=== PATIENT | female | born 1960 | race Caucasian/White ===

== ENCOUNTER 2016-07-28 21:15 | Inpatient (IN) ==
--- NOTE | 2016-07-29 00:28 | Internal Med History&Physical ---
Date of Encounter: 07/29/16 Time of Encounter: 00:28 Assessment and Plan (1) COPD exacerbation Current visit: No Status: Acute COPD exacerbation secondary in the setting of acute bronchitis vs LLL pneumonia. CXR showed new focal, linear opacity; pneumonia vs atelectasis. Patient started on Levaquin in the ED ([place]), continue 5 day course. Continue duonebs Q12H scheduled, albuterol Q4H prn. IV steroids. Supplemental O2 as needed. Incentive spirometry. (2) Acute bronchitis Current visit: Yes Status: Acute See above. Qualifiers: Bronchitis organism: unspecified organism Qualified Code(s): J20.9 - Acute bronchitis, unspecified (3) Pneumonia Current visit: No Status: Acute LLL pneumonia vs atelectasis on CXR. See plan above. Qualifiers: Pneumonia type: due to unspecified organism Laterality: left Lung location: lower lobe of lung Qualified Code(s): J18.9 - Pneumonia, unspecified organism (4) Rib pain on left side Current visit: Yes Status: Acute Likely secondary to muscle strain in the setting of increased coughing. CXR negative for any acute fractures. Will order lidocaine patch for localized pain relief. (5) Leukocytosis Current visit: Yes Status: Acute Likely secondary to recent steroid use vs respiratory tract infection. WBC 19.5, afebrile. Continue to monitor. Qualifiers: Leukocytosis type: unspecified Qualified Code(s): D72.829 - Elevated white blood cell count, unspecified (6) Back pain Current visit: Yes Status: Chronic Chronic back pain, with radiations to lower extremities bilaterally. Patient receives spinal injections in [facility]. Continue home pain medication. Qualifiers: Back pain location: back pain in unspecified location Chronicity: chronic Back pain laterality: unspecified Qualified Code(s): M54.9 - Dorsalgia, unspecified; G89.29 - Other chronic pain (7) HTN (hypertension) Current visit: Yes Status: Chronic Continue home meds, coreg. Will likely need to verify home dosage. Current BP is 175/83. Qualifiers: Hypertension type: essential hypertension Qualified Code(s): I10 - Essential (primary) hypertension (8) HLD (hyperlipidemia) Current visit: Yes Status: Chronic Continue lovastatin, home dose unknown. Qualifiers: Hyperlipidemia type: unspecified Qualified Code(s): E78.5 - Hyperlipidemia , unspecified Internal Medicine - H&P: HPI Chief complaint: rib pain, dyspnea Admitted From: Hospital to Hospital Transfer Plans for Post Hospital Care: Home History of present illness: Ms. Bonilla is a 56 year old female that presented from [place] ED for shortness of breath. Patient states she has been dealing with symptoms for approx 6 weeks. Patient states she has had frontal sinus pressure and headache, post-nasal drainage, sorethroat, coughing with increased yellow/green sputum. She notes one episode of post-tussive emesis. Patient denies any fevers, chills , dizziness, syncope, vision changes, nausea, abdominal pain, chest pain, diarrhea, constipation, or dysuria. Patient notes L lateral rib pain x 2 days, worsened with coughing or deep inhalation. She states the pain is what brings her in, as the shortness of breath has been improving at home with the use of her boyfriend's duonebs approx every 4 hrs. Patient admits to currently smoking approx 1 ppd of cigarettes for the past 43 years. Past Med Surg Social Fam HX - Past Medical History Medical history: no medical history, myocardial infarction Psychiatric history: no psych history - Past Surgical History Surgical History: hysterectomy - Social History Smoking Status: Current every day smoker Packs per day: 1 Smokeless Tobacco Status: No Alcohol use: none Drug use: none - Family History Mother History Unknown: Yes Living Status: Still Living Hx Family Cardiac Disorders: Yes Hx Family Respiratory Disorders: No Hx Family Cancer: No Hx Family GI Disorders: Yes Hx Family Genitourinary Disorders: No Hx Family Endocrine Disorder: Yes Hx Family Musculoskeletal Disorders: No Hx Family Neuromuscular Disorders: No Hx Family Neurologic Disorders: No Hx Family Autoimmune Disorders: No Hx Family Reproductive Disorders: No Hx Family Psychosocial Disorders: No Hx Family Medical Disorders: No Father Hx Family Respiratory Disorders: Yes (emphysema ) Internal Medicine - H&P: Meds Coreg 07/27/16 [History] Diclofenac Sodium 07/27/16 [History] Estradiol 07/27/16 [History] Lovastatin 07/27/16 [History] Lyrica 07/27/16 [History] Occluvan 07/27/16 [History] Percocet 5/325 MG 07/27/16 [History] Prednisone 07/27/16 [History] Tizanidine HCl 07/27/16 [History] Ventolin Hfa 07/27/16 [History] Vitamin D 07/27/16 [History] Allergies No Known Allergies Allergy (Verified 07/27/16 11:12) All Systems PM: A 10-system review of systems was performed and is negative for pertinent findings except as documented above in the HPI. - Constitutional Constitutional: as per HPI, no fever(s) - EENT Eyes: as per HPI, no loss of vision Nose, mouth and throat: no dysphagia - Cardiovascular Cardiovascular ROS IM: as per HPI, dyspnea, no chest pain, no lightheadedness, no syncope - Respiratory Respiratory: as per HPI, cough, dyspnea, excessive phlegm production, change in phlegm color - Gastrointestinal Gastrointestinal: as per HPI, no abdominal pain, no nausea, no vomiting - Musculoskeletal Musculoskeletal ROS IM: back pain - Integumentary Integumentary IM: no erythema, no new lesions - Neurological Neurological ROS: headache(s), no confusion, no dizziness - Constitutional Vitals: Temp Pulse Resp BP Pulse Ox 97.5 F L 90 18 175/83 93 L 07/28/16 23:52 07/28/16 23:52 07/28/16 23:52 07/28/16 23:52 07/28/16 23:52 General appearance: Present: cooperative, mild distress, A&O X 3, obese, answers questions appropriately - Head Head exam: Present: atraumatic, normocephalic - Eye Eye exam: Present: EOMI, conjuntiva pink, sclera anicteric - Neck Neck exam general surgery: Present: full ROM, supple, trachea midline - Respiratory Respiratory exam: Present: rhonchi, wheezes. Absent: accessory muscle use, chest wall tenderness, rales - Cardiovascular Cardiovascular exam: Present: RRR, +S1, +S2. Absent: diastolic murmur, gallop, rubs, systolic murmur - GI/Abdominal GI/Abdominal exam: Present: normal bowel sounds, soft, no peritoneal signs. Absent: distended, tenderness - Extremities Exam Extremities exam: Present: warm. Absent: calf tenderness, cyanotic, pedal edema - Neurological Exam Neurological exam: Present: alert, normal gait, oriented X3, no focal deficits. Absent: motor sensory deficit, facial droop, speech deficit - Skin Skin exam: Present: dry, intact Internal Med - H&P Results - Labs CBC & Chem 7: 07/29/16 01:35 07/29/16 01:35
[2016-07-29] MEDS ORDERED: Albuterol 2.5 MG/3 ML NEBULIZER IH PRN (01:08)
[2016-07-29] MEDS ORDERED: Naloxone 0.4 MG/ML INJ IVP PRN (01:09)
[2016-07-29] MEDS ORDERED: *HR* HYDROcodone/Acet 5/325 mg TABLET PO PRN (01:25)
[2016-07-29] MEDS ORDERED: *HR* OxyCODONE/APAP 5/325 TABLET PO PRN (01:50)
[2016-07-29 01:56] LABS: Basophils % 0.2 %; Hematocrit 36.4 % (35.3-44.9); Hemoglobin 11.7 g/dL (11.5-15.4); Immature Granulocytes % 0.8 % (0-4); Immature Platelets 3.4 % (1.1-6.1); Lymphocytes % 16.4 %; Mean Corpuscular HGB Conc 32.1 g/dL (31.6-35.5); Mean Corpuscular Hemoglobin 30.2 pg (28.0-33.3); Mean Corpuscular Volume 93.8 fL (83.0-100.0); Mean Platelet Volume 9.9 fL (9.4-12.4); Monocytes # 0.3 K/mcL (0.0-1.3); Monocytes % 1.8 %; Neutrophils # 14.7 K/mcL (1.6-8.9); Platelet Count 297 K/mcL (140-400); Red Blood Count 3.88 M/mcL (3.82-4.97); Red Cell Distribution Width 12.8 % (11.5-14.5); Segmented Neutrophils % 80.8 %
[2016-07-29 02:13] LABS: BUN/Creatinine Ratio 12 (6-26); Blood Urea Nitrogen 10 mg/dL (7-20); Calcium 8.8 mg/dL (8.6-10.8); Carbon Dioxide 21 mEq/L (19-29); Chloride 107 mEq/L (98-109); Glucose 219 mg/dL (70-99); Osmolality,Calculated 300 (280-300); Sodium 142 mEq/L (136-145); eGFR For African Americans > 60 (> 60); eGFR For Non-African Americans > 60 (> 60)
[2016-07-29] MEDS: Melatonin 3 MG TABLET PO SCH ×2 (02:25→20:42)
[2016-07-29] MEDS: Ibuprofen 600 MG TABLET PO PRN ×3 (03:48→22:00)
[2016-07-29] MEDS ORDERED: Ipratropium/Albuterol Neb 3 ML IH SCH (04:00)
[2016-07-29] MEDS: Albuterol 2.5 MG/3 ML NEBULIZER IH SCH ×6 (04:33→22:49)
[2016-07-29] MEDS: Ipratropium/Albuterol Neb 3 ML IH SCH ×4 (04:33→22:47)
[2016-07-29] MEDS: MethylPREDNISolone 40 MG/ML VIAL IVP SCH ×2 (05:41→16:55)
[2016-07-29] MEDS ORDERED: MethylPREDNISolone 40 MG/ML VIAL IVP SCH (08:00)
[2016-07-29] MEDS: Levofloxacin 750 MG/150 ML 750 MG/150 ML BAG IVPB SCH (08:53)
[2016-07-29] MEDS: Nicotine 14 MG PATCH.TD24 TD SCH (08:59)
[2016-07-29] MEDS: *HR* OxyCODONE/APAP 10/325 TABLET PO PRN ×3 (09:40→21:57)
--- NOTE | 2016-07-29 13:27 | Internal Med Progress Note ---
Date of Encounter: 07/29/16 Time of Encounter: 10:00 - Assessment and plan (1) COPD exacerbation Current Visit: No Status: Acute Assessment and plan: Patient has history of smoking and acute shortness of breath. She was considered COPD by urgent care doctor, but has not done pulmonary function test. Will treat patient as a COPD exacerbation. Continue antibiotic, IV steroid, and bronchodilator. (2) Tobacco abuse Current Visit: Yes Status: Acute Assessment and plan: Smoking cessation education. Place patient on nicotine patch (3) Leukocytosis Current Visit: Yes Status: Acute Assessment and plan: Patient was placed on prednisone by urgent care doctor. Leukocytosis possibly due to steroid use. Qualifiers: Leukocytosis type: unspecified Qualified Code(s): D72.829 - Elevated white blood cell count, unspecified (4) HLD (hyperlipidemia) Current Visit: Yes Status: Chronic Assessment and plan: Continue home medication Qualifiers: Hyperlipidemia type: unspecified Qualified Code(s): E78.5 - Hyperlipidemia , unspecified (5) HTN (hypertension) Current Visit: Yes Status: Chronic Assessment and plan: Patient is on carvedilol 12.5 mg twice a day. Follow-up of blood pressure. Qualifiers: Hypertension type: essential hypertension Qualified Code(s): I10 - Essential (primary) hypertension (6) Hyperglycemia Current Visit: Yes Status: Acute Assessment and plan: Possibly due to steroid use. Will check hemoglobin A1c and place patient on sliding scale (7) DVT prophylaxis Current Visit: Yes Status: Acute Assessment and plan: Heparin subcutaneously - Time Spent With Patient 25 - 35 minutes - Subjective Interval history: Patient is a 56-year-old female admitted as COPD exacerbation. Her past medical history is significant for CAD, tobacco abuse. Patient was seen and examined. She is still in acute respiratory distress, no chest pain, mild cough, no fever, no nausea no vomiting. Vital signs stable. On Levaquin, steroid, and bronchodilator. - Constitutional Vitals: Temp Pulse Resp BP Pulse Ox 97.5 F L 74 18 163/88 95 07/29/16 11:07 07/29/16 11:07 07/29/16 11:12 07/29/16 11:07 07/29/16 11:12 General appearance: Present: cooperative, mild distress, A&O X 3, obese, answers questions appropriately - Head Head exam: Present: atraumatic, normocephalic - Eye Eye exam: Present: PERRL, conjuntiva pink, sclera anicteric Pupils: Present: PERRL - Neck Neck exam general surgery: Present: supple, trachea midline. Absent: lymphadenopathy - Respiratory Respiratory exam: Present: CTAB, wheezes (Scattered wheezes bilaterally). Absent: accessory muscle use, rales, rhonchi - Cardiovascular Cardiovascular exam: Present: RRR, +S1, +S2. Absent: diastolic murmur, gallop, rubs, systolic murmur - GI/Abdominal GI/Abdominal exam: Present: normal bowel sounds, soft, no peritoneal signs. Absent: distended, tenderness - Extremities Exam Extremities exam: Present: warm, radial pulses palpable and symetrical. Absent : calf tenderness, cyanotic, pedal edema - Neurological Exam Neurological exam: Present: CN II-XII intact, oriented X3, no focal deficits. Absent: pronater drift, facial droop, speech deficit - Skin Skin exam: Present: dry, intact Internal Medicine: Result - Labs CBC & Chem 7: 07/29/16 01:35 07/29/16 01:35 Labs: Short CBC 07/29/16 Range/Units 01:35 WBC 18.2 H (4.3-11.1) K/mcL Hgb 11.7 (11.5-15.4) g/dL Hct 36.4 (35.3-44.9) % Plt Count 297 (140-400) K/mcL Neutrophils # 14.7 H (1.6-8.9) K/mcL BMP 07/29/16 01:35 Sodium 142 Potassium 4.0 Chloride 107 Carbon Dioxide 21 BUN 10 Creatinine 0.82 Glucose 219 H Calcium 8.8 Cardiac Enzymes 07/29/16 Range/Units 01:35 Troponin I 0.00 (0-0.03) ng/mL Consult Discharge Plan - Plan Referrals: NO,PCP [Primary Care Provider] -
[2016-07-29] MEDS ORDERED: *HR* Dextrose 50 % in Water (Syg) 50 ML SYRINGE IVP PRN (14:24)
[2016-07-29] MEDS ORDERED: Dextrose Gel 15 GM PO PRN ×2 (14:24)
[2016-07-29] MEDS ORDERED: D5% in Water 1,000 ML IV PRN (14:24)
[2016-07-29 15:06] LABS: Basophils % 0.2 %; Hematocrit 36.4 % (35.3-44.9); Immature Granulocytes % 1.8 % (0-4); Lymphocytes # 3.5 K/mcL (0.6-4.6); Mean Corpuscular Hemoglobin 30.6 pg (28.0-33.3); Mean Corpuscular Volume 92.9 fL (83.0-100.0); Mean Platelet Volume 9.9 fL (9.4-12.4); Monocytes # 0.6 K/mcL (0.0-1.3); Monocytes % 3.5 %; Platelet Count 296 K/mcL (140-400); Red Blood Count 3.92 M/mcL (3.82-4.97); Segmented Neutrophils % 74.5 %
[2016-07-29 15:15] LABS: Hemoglobin A1C 5.2 %
[2016-07-29 15:20] LABS: BUN/Creatinine Ratio 14 (6-26); Blood Urea Nitrogen 14 mg/dL (7-20); Calcium 9.4 mg/dL (8.6-10.8); Carbon Dioxide 19 mEq/L (19-29); Chloride 107 mEq/L (98-109); Glucose 150 mg/dL (70-99); Osmolality,Calculated 293 (280-300); Potassium 4.4 mEq/L (3.5-4.5); Sodium 140 mEq/L (136-145); eGFR For African Americans > 60 (> 60); eGFR For Non-African Americans 60 (> 60)
[2016-07-29] MEDS: Insulin LISPRO 300 UNITS/3 ML VIAL SQ SCH ×2 (16:02→20:43)
[2016-07-29] MEDS: *HR* Heparin 5,000 UNIT/ML VIAL SQ SCH (16:54)
[2016-07-30] MEDS: *HR* OxyCODONE/APAP 10/325 TABLET PO PRN ×4 (04:00→22:15)
[2016-07-30] MEDS: Albuterol 2.5 MG/3 ML NEBULIZER IH SCH ×6 (04:37→22:56)
[2016-07-30] MEDS: Ipratropium/Albuterol Neb 3 ML IH SCH ×4 (04:45→22:54)
[2016-07-30] MEDS: MethylPREDNISolone 40 MG/ML VIAL IVP SCH (05:43)
[2016-07-30] MEDS: *HR* Heparin 5,000 UNIT/ML VIAL SQ SCH ×2 (05:43→17:14)
[2016-07-30] MEDS: Insulin LISPRO 300 UNITS/3 ML VIAL SQ SCH ×4 (07:23→20:56)
[2016-07-30] MEDS: Nicotine 14 MG PATCH.TD24 TD SCH (08:57)
[2016-07-30] MEDS: Ibuprofen 600 MG TABLET PO PRN ×2 (08:57→17:19)
[2016-07-30] MEDS: Levofloxacin 750 MG/150 ML 750 MG/150 ML BAG IVPB SCH (09:04)
--- NOTE | 2016-07-30 14:17 | Internal Med Progress Note ---
Date of Encounter: 07/30/16 Time of Encounter: 09:00 - Assessment and plan (1) COPD exacerbation Current Visit: No Status: Acute Assessment and plan: Patient has history of smoking and acute shortness of breath. She was considered COPD by urgent care doctor, but has not done pulmonary function test. Will treat patient as a COPD exacerbation. Continue antibiotic, IV steroid, and bronchodilator. Clinically improved, tapered down steroid and switched to by mouth. (2) Tobacco abuse Current Visit: Yes Status: Acute Assessment and plan: Smoking cessation education. Place patient on nicotine patch (3) Leukocytosis Current Visit: Yes Status: Acute Assessment and plan: Patient was placed on prednisone by urgent care doctor. Leukocytosis possibly due to steroid use. Qualifiers: Leukocytosis type: unspecified Qualified Code(s): D72.829 - Elevated white blood cell count, unspecified (4) HLD (hyperlipidemia) Current Visit: Yes Status: Chronic Assessment and plan: Continue home medication Qualifiers: Hyperlipidemia type: unspecified Qualified Code(s): E78.5 - Hyperlipidemia , unspecified (5) HTN (hypertension) Current Visit: Yes Status: Chronic Assessment and plan: Patient is on carvedilol 12.5 mg twice a day. Follow-up of blood pressure. Qualifiers: Hypertension type: essential hypertension Qualified Code(s): I10 - Essential (primary) hypertension (6) Hyperglycemia Current Visit: Yes Status: Acute Assessment and plan: Possibly due to steroid use. hemoglobin A1c 5.2 which r/o DM. Place patient on sliding scale for now. (7) DVT prophylaxis Current Visit: Yes Status: Acute Assessment and plan: Heparin subcutaneously - Time Spent With Patient 25 - 35 minutes - Subjective Interval history: Patient is a 56-year-old female admitted as COPD exacerbation. Her past medical history is significant for CAD, tobacco abuse. Patient was seen and examined. She feels much better today, in no acute respiratory distress, no chest pain, no cough, no fever, no nausea no vomiting. Vital signs stable. On Levaquin, steroid, and bronchodilator. taper down and change to by mouth steroids. - Constitutional Vitals: Temp Pulse Resp BP Pulse Ox 97.3 F L 66 20 155/91 99 07/30/16 11:00 07/30/16 11:00 07/30/16 11:00 07/30/16 11:00 07/30/16 11:00 General appearance: Present: cooperative, A&O X 3, no acute distress, obese, answers questions appropriately - Head Head exam: Present: atraumatic, normocephalic - Eye Eye exam: Present: PERRL, conjuntiva pink, sclera anicteric Pupils: Present: PERRL - Neck Neck exam general surgery: Present: supple, trachea midline. Absent: lymphadenopathy - Respiratory Respiratory exam: Present: CTAB. Absent: accessory muscle use, rales, rhonchi, wheezes - Cardiovascular Cardiovascular exam: Present: RRR, +S1, +S2. Absent: diastolic murmur, gallop, rubs, systolic murmur - GI/Abdominal GI/Abdominal exam: Present: normal bowel sounds, soft, no peritoneal signs. Absent: distended, tenderness - Extremities Exam Extremities exam: Present: warm, radial pulses palpable and symetrical. Absent : calf tenderness, cyanotic, pedal edema - Neurological Exam Neurological exam: Present: CN II-XII intact, oriented X3, no focal deficits. Absent: pronater drift, facial droop, speech deficit - Skin Skin exam: Present: dry, intact Internal Medicine: Result - Labs CBC & Chem 7: 07/29/16 14:46 07/29/16 14:46 Labs: Short CBC 07/29/16 Range/Units 14:46 WBC 17.4 H (4.3-11.1) K/mcL Hgb 12.0 (11.5-15.4) g/dL Hct 36.4 (35.3-44.9) % Plt Count 296 (140-400) K/mcL Neutrophils # 13.0 H (1.6-8.9) K/mcL BMP 07/29/16 14:46 Sodium 140 Potassium 4.4 Chloride 107 Carbon Dioxide 19 BUN 14 Creatinine 0.97 Glucose 150 H Calcium 9.4 Consult Discharge Plan - Plan Referrals: NO,PCP [Primary Care Provider] - (Patient is seen at the [facility] when she needs medical care. Patient is happy with this arrangement and will continue to see them as needed. Thank you)
[2016-07-30] MEDS: Melatonin 3 MG TABLET PO SCH (20:54)
[2016-07-31] MEDS: Ipratropium/Albuterol Neb 3 ML IH SCH ×2 (04:02→10:30)
[2016-07-31] MEDS: Albuterol 2.5 MG/3 ML NEBULIZER IH SCH ×3 (04:02→11:46)
[2016-07-31] MEDS: *HR* OxyCODONE/APAP 10/325 TABLET PO PRN (04:15)
[2016-07-31 04:18] LABS: BUN/Creatinine Ratio 25 (6-26); Blood Urea Nitrogen 24 mg/dL (7-20); Calcium 9.1 mg/dL (8.6-10.8); Carbon Dioxide 25 mEq/L (19-29); Chloride 106 mEq/L (98-109); Glucose 86 mg/dL (70-99); Osmolality,Calculated 295 (280-300); Potassium 3.9 mEq/L (3.5-4.5); Sodium 141 mEq/L (136-145); eGFR For African Americans > 60 (> 60); eGFR For Non-African Americans > 60 (> 60)
[2016-07-31 04:20] LABS: Basophils # 0.1 K/mcL (0.0-0.2); Basophils % 0.4 %; Eosinophils % 0.3 %; Hematocrit 37.2 % (35.3-44.9); Immature Granulocytes % 2.4 % (0-4); Lymphocytes # 6.2 K/mcL (0.6-4.6); Lymphocytes % 50.6 %; Mean Corpuscular HGB Conc 32.3 g/dL (31.6-35.5); Mean Corpuscular Hemoglobin 30.4 pg (28.0-33.3); Mean Corpuscular Volume 94.2 fL (83.0-100.0); Mean Platelet Volume 9.7 fL (9.4-12.4); Monocytes # 0.9 K/mcL (0.0-1.3); Neutrophils # 4.8 K/mcL (1.6-8.9); Platelet Count 312 K/mcL (140-400); Red Blood Count 3.95 M/mcL (3.82-4.97); Red Cell Distribution Width 12.8 % (11.5-14.5); Segmented Neutrophils % 39.3 %
[2016-07-31] MEDS: *HR* Heparin 5,000 UNIT/ML VIAL SQ SCH (05:36)
[2016-07-31 06:50] VITALS: BP 161/91
[2016-07-31] MEDS: Insulin LISPRO 300 UNITS/3 ML VIAL SQ SCH (08:38)
[2016-07-31] MEDS ORDERED: predniSONE 20 MG TABLET PO SCH (09:00)
[2016-07-31] MEDS ORDERED: levoFLOXacin 500 MG TABLET PO SCH (09:00)
[2016-07-31] MEDS: Nicotine 14 MG PATCH.TD24 TD SCH (09:20)
--- NOTE | 2016-07-31 09:53 | Discharge Summary ---
Date of Encounter: 07/31/16 Time of Encounter: 09:00 - Discharge Diagnosis (1) COPD exacerbation Priority: Primary Status: Acute (2) Tobacco abuse Priority: Primary Status: Acute (3) Leukocytosis Priority: Primary Status: Acute Qualifiers: Leukocytosis type: unspecified Qualified Code(s): D72.829 - Elevated white blood cell count, unspecified (4) HLD (hyperlipidemia) Priority: Secondary Status: Chronic Qualifiers: Hyperlipidemia type: unspecified Qualified Code(s): E78.5 - Hyperlipidemia , unspecified (5) HTN (hypertension) Priority: Secondary Status: Chronic Qualifiers: Hypertension type: essential hypertension Qualified Code(s): I10 - Essential (primary) hypertension (6) Hyperglycemia Priority: Secondary Status: Acute (7) DVT prophylaxis Priority: Secondary Status: Acute - Discharge Medications Prescriptions: Levofloxacin [Levaquin] 750 mg PO DAILY 5 Days Nicotine Patch [Nicoderm] 14 mg TD DAILY #14 patch.[id number] PredniSONE 20 mg PO TAPER #10 tablet Home Medications: Albuterol Sulfate [Ventolin Hfa] 2 puff IH Q4H PRN 07/29/16 [History] Carvedilol 3.125 mg PO BID 07/29/16 [History] Cholecalciferol (Vitamin D3) [Vitamin D3] 10,000 unit PO MOTUWETHFR 07/29/16 [ History] Diclofenac Sodium [Voltaren] 50 mg PO BID 07/29/16 [History] Estradiol [Estrace] 1 mg PO DAILY 07/29/16 [History] OxyCODONE/APAP 10/325 [Percocet 10/325 MG] 1 tab PO Q6H PRN 07/29/16 [History] Pregabalin [Lyrica] 150 mg PO TID 07/29/16 [History] Tizanidine HCl 4 mg PO TID PRN 07/29/16 [History] Levofloxacin [Levaquin] 750 mg PO DAILY 5 Days 07/31/16 [Rx] Nicotine Patch [Nicoderm] 14 mg TD DAILY #14 patch.[id number] 07/31/16 [Rx] PredniSONE 20 mg PO TAPER #10 tablet 07/31/16 [Rx] Allergies/Adverse Reactions: Allergies No Known Allergies Allergy (Verified 07/27/16 11:12) Date of admission: 07/28/16 23:22 Primary care physician: PCP NO Discharging clinician: Fouzia Middleton Anticipated date of discharge: 07/31/16 - Patient Status Disposition: Home, Self-Care Condition: Good Functional capacity at discharge: independent ambulation Overall status at discharge: patient is back to baseline - Discharge Instructions Follow Up With: NIA,PCP [Primary Care Provider] - (Patient is seen at the [facility] when she needs medical care. Patient is happy with this arrangement and will continue to see them as needed. Thank you) - Diet and Activity Activity: increase activity as tolerated Diet: advance to your usual diet Interval History: Ms. Bonilla is a 56 year old female that presented from [place] ED for shortness of breath. Patient states she has been dealing with symptoms for approx 6 weeks. Patient states she has had frontal sinus pressure and headache, post-nasal drainage, sorethroat, coughing with increased yellow/green sputum. She notes one episode of post-tussive emesis. Patient denies any fevers, chills , dizziness, syncope, vision changes, nausea, abdominal pain, chest pain, diarrhea, constipation, or dysuria. Patient notes L lateral rib pain x 2 days, worsened with coughing or deep inhalation. She states the pain is what brings her in, as the shortness of breath has been improving at home with the use of her boyfriend's duonebs approx every 4 hrs. Patient admits to currently smoking approx 1 ppd of cigarettes for the past 43 years. Hospital course: Ms. Bonilla is a 56 year old female admitted as a COPD exacerbation. Patient was treated with antibiotics and steroid, and bronchodilator. After treatment, patient's symptoms had resolved. She is not in any respiratory distress, saturation 98% in room air. Patient with discharge home today. I saw and examined patient today. He is awake alert, in no acute respiratory distress. Saturation 98% in room air. Patient has intermittent asthma attack with less than once a week. She has albuterol inhaler at home. Patient was told to follow-up with PCP and possibly need a pulmonary function test as an outpatient. Patient was educated to stop smoking. Patient is stable to discharge home. Time spent discussing smoking cessation with patient: more than 10 minutes - Time Spent with Patient Total time spent providing and/or coordinating discharge services: 40 minutes - Constitutional Vitals: Temp Pulse Resp BP Pulse Ox 98.0 F 80 16 161/91 98 01/13/17 06:43 07/31/16 06:43 07/31/16 06:43 07/31/16 06:43 07/31/16 09:26 General appearance: Present: cooperative, A&O X 3, no acute distress, obese, answers questions appropriately - Head Head exam: Present: atraumatic, normocephalic - Eye Eye exam: Present: PERRL, conjuntiva pink, sclera anicteric Pupils: Present: PERRL - Neck Neck exam general surgery: Present: supple, trachea midline. Absent: lymphadenopathy - Respiratory Respiratory exam: Present: CTAB. Absent: accessory muscle use, rales, rhonchi, wheezes - Cardiovascular Cardiovascular exam: Present: RRR, +S1, +S2. Absent: diastolic murmur, gallop, rubs, systolic murmur - GI/Abdominal GI/Abdominal exam: Present: normal bowel sounds, soft, no peritoneal signs. Absent: distended, tenderness - Extremities Exam Extremities exam: Present: warm, radial pulses palpable and symetrical. Absent : calf tenderness, cyanotic, pedal edema - Neurological Exam Neurological exam: Present: CN II-XII intact, oriented X3, no focal deficits. Absent: pronater drift, facial droop, speech deficit - Skin Skin exam: Present: dry, intact
== END 2016-07-31 11:48 | disposition home or self-care (01) | DRG 190 ==
LOC: 3ANU → OBSVTOIN 23:22
PROVIDERS: ADMIT Internal Medicine; ATTEND Internal Medicine